=== PATIENT | male | born 1960 | race Hispanic/Latino ===

== ENCOUNTER 2022-12-24 10:39 | Emergency (ER) | payer OTHER ==
[~2022-12-24] VITALS: Ht 182.9 cm; Wt 130.6 kg
[2022-12-24 11:15] VITALS: BP 158/76; PULSE 74; RESP 18; O2SAT 99
[2022-12-24] MEDS ORDERED: TETANUS/DIPHTHERIA TOXOID [ADULT] 0.5 ML VIAL IM ONE (11:30)
== END 2022-12-24 13:09 | disposition home or self-care (01) ==
LOC: EDH 10:39
DX: S61.011A Laceration without foreign body of right thumb without damage to nail, initial encounter (principal); I10 Essential (primary) hypertension; Z98.890 Other specified postprocedural states; S61.210A Laceration without foreign body of right index finger without damage to nail, initial encounter; X58.XXXA Exposure to other specified factors, initial encounter; Y93.89 Activity, other specified; Y92.89 Other specified places as the place of occurrence of the external cause; Y99.8 Other external cause status
CPT/HCPCS: 12001; 90471; 90714

== ENCOUNTER → 2024-03-15 | Outpatient (CLI) | payer OTHER ==
[2024-03-15] MEDS: REGADENOSON 0.4 MG/5 ML PF SYG IVP ONE (10:10)
--- NOTE | 2024-03-15 16:16 | HMCSR ---
APPROVED REPORT Height: 6 ft in Weight: 274 lbs TEST INDICATIONS CAD The imaging protocol used to acquire images was Rest Tc-99m/stress Tc-99m 1 day Consent: The procedure was explained and understood by the patient. Informerd consent was witnessed Jayne Baca RN First, low dose rest was performed then high dose stress. RESTING DATA: The resting ekg shows: NSR Low Voltage Rest SPECT myocardial perfusion imaging was performed in supine position 64 minutes following the int ravenous injection of 11 mCi of Tc-99 Sestamibi. Time of rest injection: 08:00: Date: 03/15/2024 Time of rest imagin:04: Date: 03/15/2024 PHARMACOLOGIC STRESS: Pharmacologic stress test was performed by injecting regadenoson 0.4 mg IV push followed by the intra venous injection of 31 mCi of Tc-99 Sestamibi. Time of stress injection: 09:40: Date: 03/15/2024 Time of stress imagin:12: Date: 03/15/2024 Heart Rate at time of stress injection: 63 bpm. Gated Stress SPECT was performed 92 minutes after stress injection. The images were gated to evaluate regional wall motion and calculate left ventricular ejection fracti on. STRESS DETAILS Reason for Termination: Infusion complete Stress Symptoms: Dyspnea Max HR Achieved: 81 bpm % of APMHR Achieved: 52 Max Blood Pressure: 155/75 mmHg Stress ECG: NSR Conclusion Inferior and apical infarct Septal ischemia LV ejection fraction 63% Normal LV size at rest and stress Normal LV wall motion No increased lung uptake
== END | disposition home or self-care (01) ==
LOC: SHCH 07:38
PROVIDERS: ATTEND Internal Medicine Cardiovascular Disease
DX: I25.10 Atherosclerotic heart disease of native coronary artery without angina pectoris (principal); R07.89 Other chest pain; R51.9 Headache, unspecified; R06.00 Dyspnea, unspecified
CPT/HCPCS: 78452; 93017; J2785; A9500 ×2